=== PATIENT | female | born 1970 | race Caucasian/White ===

== ENCOUNTER 2019-05-05 11:38 | Emergency (ER) | payer MEDICAID ==
--- NOTE | 2019-05-05 11:49 | ER Report ---
History and Physical Time Seen By MD: 11:41 HPI/ROS CHIEF COMPLAINT: Possible strep throat HISTORY OF PRESENT ILLNESS: This is a 48-year-old female presents to emergency department for possible strep throat. Patient states that she is moving out to [place], the patient was treated for strep throat last month with [facility]. She states that her discomfort premature resolved however she's had a recurrence of throat pain, redness, swelling and she noted some drainage on the right tonsil. The patient states that last month when she was treated she had a fever, was very ill however they did not test her for strep throat. She denies fevers or chills today. She states she "didn't wanted to get quite as bad". No chest pain or shortness breath. No nausea vomiting. No diarrhea. REVIEW OF SYSTEMS: ENT: As above. Respiratory: No cough, no dyspnea. Cardiovascular: No chest pain, no palpitations. Gastrointestinal: No vomiting, no abdominal pain. Musculoskeletal: No back pain. Allergies: Coded Allergies: Penicillins (Verified Allergy, Severe, 05/05/19) Sulfa (Sulfonamide Antibiotics) (Verified Allergy, Severe, 05/05/19) cephalexin (Verified Allergy, Intermediate, 05/05/19) Home Meds Active Scripts Ibuprofen (IBUPROFEN) 800 Mg Tablet, 1 TAB PO Q8H, #20 TAB 0 Refills Prov:[facility]ERSON [facility]- 05/05/19 Azithromycin 250 Mg Tab (AZITHROMYCIN 250 MG TAB) 250 Mg Tablet, 1 TAB PO QDAY, #6 TAB Take 2 tabs today and then 1 tab a day until gone. Prov:YOLA ANDERSON [facility]- 05/05/19 Reported Medications Bupropion Hcl (WELLBUTRIN XL) 300 Mg Tab.er.24h, 300 MG PO QDAY, TAB 05/05/19 Past Medical/Surgical History The patient has a past medical surgical history of strep throat, hysterectomy, depression, suicide attempt. Reviewed Nurses Notes: Yes Constitutional Vital Sign - Last 24 Hours 05/05/19 05/05/19 05/05/19 05/05/19 11:44 11:49 12:00 12:08 Temp 98.0 Pulse 120 116 Resp 20 B/P (MAP) 133/89 (104) 133/89 116/92 (100) Pulse Ox 92 93 O2 Delivery Room Air 05/05/19 05/05/19 05/05/19 05/05/19 12:30 12:38 13:00 13:08 Pulse 123 108 B/P (MAP) 111/79 (90) 105/84 (91) Pulse Ox 92 96 05/05/19 05/05/19 13:30 14:00 Pulse 108 B/P (MAP) 116/87 (97) 114/80 (91) Pulse Ox 93 Physical Exam General Appearance: The patient is alert, has no immediate need for airway protection and no current signs of toxicity. Eyes: Pupils equal and round no injection. ENT: Erythema to the posterior oropharynx, 2+ right tonsillar hypertrophy with exudates, 1+ tonsillar hypertrophy on the left, no exudates. Bilateral anterior cervical chain lymphadenopathy. Uvula midline. Respiratory: Chest is non tender, lungs are clear to auscultation. Cardiac: regular rate and rhythm. Gastrointestinal: Abdomen is soft and non tender, no masses, bowel sounds normal. Musculoskeletal: Neck: Neck is supple and non tender. Extremities have full range of motion and are non tender. Skin: No rashes or lesions. DIFFERENTIAL DIAGNOSIS: After history and physical exam differential diagnosis was considered for strep throat, viral pharyngitis, seasonal allergies, otitis media, mononucleosis. Medical Decision Making Data Points Laboratory Serology Test 05/05/19 12:02 Group A Streptococcus (PCR) Positive (NEGATIVE) ED Course/Re-evaluation ED Course The patient was admitted to room. A history of physical were obtained. Differential diagnoses were considered. Rapid strep test was positive, patient was given a prescription for azithromycin, encourage the patient follow up with Dr. Valencia for more definitive care she's had recurrent episodes of strep throat. Also recommended allergy testing, the patient is relocating from [place] to [place]. The patient expressed understanding, was discharged home. Decision to Disposition Date: May 05, 2019 Decision to Disposition Time: 14:24 Depart Departure Latest Vital Signs Vital Signs Date Time Temp Pulse Resp B/P (MAP) Pulse Ox O2 Delivery O2 Flow Rate FiO2 05/05/19 14:00 108 114/80 (91) 93 05/05/19 11:49 98.0 20 Room Air Impression: Primary Impression: Pharyngitis, acute Condition: Improved Disposition: HOME OR SELF-CARE Referrals: KISHORE VALENCIA JR, MD New Scripts Ibuprofen (IBUPROFEN) 800 Mg Tablet 1 TAB PO Q8H, #20 TAB 0 Refills Prov: YOLA ANDERSON [facility] 05/05/19 Azithromycin 250 Mg Tab (AZITHROMYCIN 250 MG TAB) 250 Mg Tablet 1 TAB PO QDAY, #6 TAB Take 2 tabs today and then 1 tab a day until gone. Prov: YOLA ANDERSON [facility] 05/05/19 Patient Instructions: Pharyngitis (ED) Additional Instructions: Please follow up with Dr. Valencia for allergy testing and reevaluation on your recurrent strep throat. Drink plenty of water. Get plenty of rest. Take the antibiotics as prescribed. Gargle with Salt Water every 4 hours. You can also try 1 tspn of Honey every 4-6 hours, this will help with the throat pain. Return to the ED for any other concerns or worsening symptoms. Problem Qualifiers Primary Impression: Pharyngitis, acute Pharyngitis/tonsillitis etiology: unspecified etiology Qualified Codes: J02.9 - Acute pharyngitis, unspecified YOLA ANDERSON [facility] May 05, 2019 11:49
[2019-05-05] MEDS ORDERED: BUPR-474 PO (11:59)
[2019-05-05 14:00] VITALS: BP 114/80
[2019-05-05] MEDS ORDERED: AZIT-18 PO (14:17)
[2019-05-05] MEDS ORDERED: IBUP800T37 PO (14:30)
== END 2019-05-05 14:38 | disposition home or self-care (01) ==
LOC: ER 11:44
DX: J02.0 Streptococcal pharyngitis (principal)
CPT/HCPCS: 87653